=== PATIENT | male | born 1950 | race Caucasian/White ===

== ENCOUNTER 2017-08-07 16:06 | Observation (INO) | payer MEDICARE, BC ==
[~2017-08-07] VITALS: Ht 190.5 cm; Wt 113.5 kg
[~2017-08-07 16:06] MED LIST: ALLO300 PO; AMLO10 PO; ASPI81CH; ATEN25 PO; ATOR20 PO; CEPH500 PO; CRUTCH4 USE; ETOD400 PO; IBUP600 PO; NAPR550 PO; Norco 5-325 Ta1 EACH PO; OXYACE5T PO; POTA8 PO; Percocet 5-3251 EACH PO; RXNAPNA550 PO; SIMV10 PO
[2017-08-07] MEDS ORDERED: HYDCHL25 PO (16:30)
[2017-08-07 16:43] LABS: BASOPHILS ABSOLUTE AUTO 0.05 K/mm3 (0.00-0.23); BASOPHILS PERCENT AUTO 1 % (0-2); EOSINOPHILS ABSOLUTE AUTO 0.27 K/mm3 (0.00-0.68); EOSINOPHILS PERCENT AUTO 4 % (0-6); Hematocrit 45.3 % (37.0-53.0); Hemoglobin 14.9 g/dL (13.5-17.5); IMMATURE GRAN ABSOLUTE AUTO 0.02 K/mm3 (0.00-0.10); IMMATURE GRAN PERCENT AUTO 0 % (0-1); LYMPHOCYTES ABSOLUTE AUTO 1.62 K/mm3 (0.84-5.20); LYMPHOCYTES PERCENT AUTO 26 % (21-46); MONOCYTES ABSOLUTE AUTO 0.63 K/mm3 (0.16-1.47); MONOCYTES PERCENT AUTO 10 % (4-13); Mean Corpuscular HGB 30.8 pg (26.0-34.0); Mean Corpuscular HGB Conc 32.9 g/dL (31.5-36.5); Mean Corpuscular Volume 94 fL (80-100); Mean Platelet Volume 10.1 fL (9.1-12.4); NEUTROPHILS ABSOLUTE AUTO 3.76 K/mm3 (1.96-9.15); NEUTROPHILS PERCENT AUTO 59 % (41-73); Platelet Count 228 K/mm3 (150-400); RDW Coefficient Variation 12.8 % (11.7-14.2); RDW Standard Deviation 44.2 fL (35.1-46.3); Red Blood Cell Count 4.83 M/mm3 (4.30-5.90); White Blood Cell Count 6.35 K/mm3 (4.00-11.30)
[2017-08-07 17:04] LABS: Magnesium, Blood 1.9 mg/dL (1.6-2.4)
[2017-08-07 17:05] LABS: Alanine Aminotransfer (ALT/SGP 70 U/L (12-78); Albumin, Blood 3.5 g/dL (3.4-5.0); Albumin/Globulin Ratio 1.1 (0.8-1.8); Alk Phos 119 U/L (50-136); Anion Gap 8 mmol/L (6-16); Aspartate Aminotrans (AST/SGOT 60 U/L (12-37); Bilirubin, Total 0.2 mg/dL (0.1-1.0); Blood Urea Nitrogen 31 mg/dL (8-24); Bun/Creatinine Ratio 25.2 (12.0-20.0); CO2, Blood 24 mmol/L (21-32); Calcium, Blood 8.2 mg/dL (8.5-10.1); Chloride, Blood 113 mmol/L (98-108); Creatinine, Blood 1.23 mg/dL (0.60-1.20); Free Thyroxine 0.91 ng/dL (0.70-1.60); Globulin, Blood 3.3 g/dL (2.2-4.0); Glomerular Filtration Rate >60 (60-); Glucose, Blood 93 mg/dL (70-99); Potassium, Blood 4.3 mmol/L (3.5-5.5); Sodium, Blood 145 mmol/L (136-145); Total Protein, Blood 6.8 g/dL (6.4-8.2)
[2017-08-08 04:56] LABS: Anion Gap 10 mmol/L (6-16); Blood Urea Nitrogen 29 mg/dL (8-24); Bun/Creatinine Ratio 25.7 (12.0-20.0); CO2, Blood 24 mmol/L (21-32); Chloride, Blood 110 mmol/L (98-108); Creatinine, Blood 1.13 mg/dL (0.60-1.20); Glomerular Filtration Rate >60 (60-); Glucose, Blood 94 mg/dL (70-99); Sodium, Blood 144 mmol/L (136-145)
[2017-08-08] MEDS ORDERED: DILTIAZEM 24HR120 M1 PO (10:27)
[2017-08-08] MEDS ORDERED: XARELTO20 MG PO (10:28)
== END 2017-08-08 12:54 | disposition home or self-care (01) ==
LOC: ER 16:06 → PCU 18:25
PROVIDERS: Emergency Medicine; Hospitalist
DX: I48.92 Unspecified atrial flutter (principal); N17.9 Acute kidney failure, unspecified; I10 Essential (primary) hypertension; F10.20 Alcohol dependence, uncomplicated; E66.01 Morbid (severe) obesity due to excess calories; E78.5 Hyperlipidemia, unspecified; M10.9 Gout, unspecified; M19.90 Unspecified osteoarthritis, unspecified site; Z68.31 Body mass index [BMI] 31.0-31.9, adult; Z87.891 Personal history of nicotine dependence; Z79.82 Long term (current) use of aspirin; Z79.899 Other long term (current) drug therapy
CPT/HCPCS: 36415; 71046; 80048; 80053; 83735; 83880; 84439; 84443; 85025; 93005; 93010; 93306; 99285; G0378

== ENCOUNTER → 2019-08-19 | Outpatient (CLI) | payer MEDICARE, BC ==
[~2019-08-19] MED LIST changes: +DILTIAZEM 24HR120 M1 PO; +HYDCHL25 PO; +XARELTO20 MG PO
[2019-08-19 19:39] LABS: Anion Gap 5 mmol/L (6-16); Blood Urea Nitrogen 27 mg/dL (8-24); Bun/Creatinine Ratio 26.2 (12.0-20.0); CO2, Blood 28 mmol/L (21-32); Calcium, Blood 8.9 mg/dL (8.5-10.1); Chloride, Blood 105 mmol/L (98-108); Creatinine, Blood 1.03 mg/dL (0.60-1.20); Glomerular Filtration Rate >60 (60-); Glucose, Blood 122 mg/dL (70-99); Potassium, Blood 4.5 mmol/L (3.5-5.5); Sodium, Blood 138 mmol/L (136-145); Uric Acid, Blood 8.4 mg/dL (3.5-7.2)
== END ==
LOC: LAB SHORT 15:40 → LAB 15:40
PROVIDERS: Family Medicine
DX: M10.9 Gout, unspecified (principal)
CPT/HCPCS: 80048; 84550

== ENCOUNTER → 2020-01-30 | Outpatient (CLI) | payer OTHER, MEDICARE, BC | END | disposition home or self-care (01) | LOC: LAB UCHC 15:28 → LAB SHORT 15:28 | DX: R30.9 Painful micturition, unspecified (principal) | CPT/HCPCS: 87086 ==

== ENCOUNTER 2020-03-26 17:56 | Emergency (ER) | payer OTHER, MEDICARE, BC ==
[~2020-03-26] VITALS: Ht 190.5 cm; Wt 117.9 kg
[~2020-03-26 17:56] MED LIST changes: +ALLO100 PO; +FUROSEMIDE40 MG PO; +Isosorbide Mono30 MG PO; +METO25ER PO; +POTA10T PO
[2020-03-26 18:31] LABS: BASOPHILS ABSOLUTE AUTO 0.05 K/mm3 (0.00-0.23); BASOPHILS PERCENT AUTO 1 % (0-2); EOSINOPHILS ABSOLUTE AUTO 0.23 K/mm3 (0.00-0.68); EOSINOPHILS PERCENT AUTO 3 % (0-6); Hemoglobin 14.2 g/dL (13.5-17.5); IMMATURE GRAN ABSOLUTE AUTO 0.05 K/mm3 (0.00-0.10); IMMATURE GRAN PERCENT AUTO 1 % (0-1); LYMPHOCYTES ABSOLUTE AUTO 1.37 K/mm3 (0.84-5.20); LYMPHOCYTES PERCENT AUTO 18 % (21-46); MONOCYTES ABSOLUTE AUTO 0.74 K/mm3 (0.16-1.47); MONOCYTES PERCENT AUTO 10 % (4-13); Mean Corpuscular HGB 31.9 pg (26.0-34.0); Mean Corpuscular Volume 97 fL (80-100); Mean Platelet Volume 10.4 fL (9.1-12.4); NEUTROPHILS ABSOLUTE AUTO 5.34 K/mm3 (1.96-9.15); NEUTROPHILS PERCENT AUTO 69 % (41-73); Platelet Count 167 K/mm3 (150-400); RDW Coefficient Variation 13.9 % (11.7-14.2); RDW Standard Deviation 49.1 fL (35.1-46.3); Red Blood Cell Count 4.45 M/mm3 (4.30-5.90); White Blood Cell Count 7.78 K/mm3 (4.00-11.30)
[2020-03-26 18:55] LABS: Anion Gap 5 mmol/L (6-16); Blood Urea Nitrogen 21 mg/dL (8-24); Bun/Creatinine Ratio 24.9 (12.0-20.0); CO2, Blood 26 mmol/L (21-32); Calcium, Blood 8.5 mg/dL (8.5-10.1); Chloride, Blood 113 mmol/L (98-108); Creatinine, Blood 0.84 mg/dL (0.60-1.20); Glomerular Filtration Rate >60 (60-); Glucose, Blood 82 mg/dL (70-99); Potassium, Blood 4.8 mmol/L (3.5-5.5); Sodium, Blood 144 mmol/L (136-145); Troponin I <0.015 ng/mL (0.000-0.040)
[2020-03-26] MEDS ORDERED: KEFLEX500 MG PO (20:24)
[2020-03-26] MEDS ORDERED: Percocet 5-3251 EACH PO (20:24)
[2020-03-26] MEDS ORDERED: ONDA4ODT MM (20:24)
[2020-03-26] MEDS ORDERED: Toprol Xl50 MG PO (20:55)
== END 2020-03-26 21:10 | disposition home or self-care (01) ==
LOC: ER 17:56
PROVIDERS: Physician Assistant
DX: I10 Essential (primary) hypertension (principal); I82.409 Acute embolism and thrombosis of unspecified deep veins of unspecified lower extremity; I48.91 Unspecified atrial fibrillation; I48.92 Unspecified atrial flutter; E78.5 Hyperlipidemia, unspecified; Z87.891 Personal history of nicotine dependence; Z79.01 Long term (current) use of anticoagulants; Z79.899 Other long term (current) drug therapy
CPT/HCPCS: 80048; 84484; 85025; 93005; 93010; 99283-25

== ENCOUNTER 2020-05-21 17:05 | Emergency (ER) | payer OTHER, MEDICARE, BC ==
[~2020-05-21] VITALS: Ht 190.5 cm; Wt 116.7 kg
[~2020-05-21 17:05] MED LIST changes: +KEFLEX500 MG PO; +ONDA4ODT MM; +Toprol Xl50 MG PO
[2020-05-21 17:58] LABS: BASOPHILS ABSOLUTE AUTO 0.08 K/mm3 (0.00-0.23); BASOPHILS PERCENT AUTO 1 % (0-2); EOSINOPHILS ABSOLUTE AUTO 0.35 K/mm3 (0.00-0.68); EOSINOPHILS PERCENT AUTO 4 % (0-6); Hematocrit 47.6 % (37.0-53.0); Hemoglobin 15.2 g/dL (13.5-17.5); IMMATURE GRAN ABSOLUTE AUTO 0.02 K/mm3 (0.00-0.10); IMMATURE GRAN PERCENT AUTO 0 % (0-1); LYMPHOCYTES ABSOLUTE AUTO 1.73 K/mm3 (0.84-5.20); LYMPHOCYTES PERCENT AUTO 20 % (21-46); MONOCYTES ABSOLUTE AUTO 0.99 K/mm3 (0.16-1.47); MONOCYTES PERCENT AUTO 11 % (4-13); Mean Corpuscular HGB 30.2 pg (26.0-34.0); Mean Corpuscular HGB Conc 31.9 g/dL (31.5-36.5); Mean Corpuscular Volume 95 fL (80-100); Mean Platelet Volume 10.3 fL (9.1-12.4); NEUTROPHILS ABSOLUTE AUTO 5.48 K/mm3 (1.96-9.15); NEUTROPHILS PERCENT AUTO 64 % (41-73); Platelet Count 252 K/mm3 (150-400); RDW Coefficient Variation 13.4 % (11.7-14.2); RDW Standard Deviation 46.6 fL (35.1-46.3); Red Blood Cell Count 5.03 M/mm3 (4.30-5.90); White Blood Cell Count 8.65 K/mm3 (4.00-11.30)
[2020-05-21 18:18] LABS: Alanine Aminotransfer (ALT/SGP 31 U/L (12-78); Albumin, Blood 3.6 g/dL (3.4-5.0); Albumin/Globulin Ratio 1.1 (0.8-1.8); Alk Phos 97 U/L (50-136); Anion Gap 8 mmol/L (6-16); Aspartate Aminotrans (AST/SGOT 33 U/L (12-37); Bilirubin, Total 0.5 mg/dL (0.1-1.0); Blood Urea Nitrogen 20 mg/dL (8-24); Bun/Creatinine Ratio 20.8 (12.0-20.0); CO2, Blood 24 mmol/L (21-32); Calcium, Blood 8.8 mg/dL (8.5-10.1); Chloride, Blood 106 mmol/L (98-108); Creatinine, Blood 0.96 mg/dL (0.60-1.20); Globulin, Blood 3.3 g/dL (2.2-4.0); Glomerular Filtration Rate >60 (60-); Glucose, Blood 91 mg/dL (70-99); Potassium, Blood 4.4 mmol/L (3.5-5.5); Sodium, Blood 138 mmol/L (136-145); Total Protein, Blood 6.9 g/dL (6.4-8.2)
[2020-05-21 18:57] LABS: International Normalized Ratio 1.05; Prothrombin Time Results 11.2 Sec (9.7-11.5)
[2020-05-21] MEDS ORDERED: SULTRIDS PO (19:40)
[2020-05-21] MEDS ORDERED: CEPH500 PO (19:40)
== END 2020-05-21 23:21 | disposition home or self-care (01) ==
LOC: ER 17:05
PROVIDERS: Emergency Medicine; Physician Assistant
DX: I82.532 Chronic embolism and thrombosis of left popliteal vein (principal); L03.116 Cellulitis of left lower limb; I10 Essential (primary) hypertension; E78.5 Hyperlipidemia, unspecified; Z79.01 Long term (current) use of anticoagulants; Z87.891 Personal history of nicotine dependence; Z79.899 Other long term (current) drug therapy
CPT/HCPCS: 36415; 73630; 80053; 85025; 85610; 85730; 93971; 96365; 96366; 96367; 99284-25; J0696; J3370; J7050

== ENCOUNTER 2020-05-23 00:27 | Day surgery (SDC) | payer OTHER, MEDICARE, BC ==
[~2020-05-23 00:27] MED LIST changes: +SULTRIDS PO
--- NOTE | 2020-05-23 09:42 | NUR ---
PT STATES HE IS GOING TO ER HE CANNOT USE HIS R ARM. STATES IT IS FROM THE ER STAFF LEAVING THE BP CUFF ON R ARM.
[2020-05-23] MEDS ORDERED: Percocet 5-3251 EACH PO (11:12)
== END 2020-05-23 18:02 | disposition home or self-care (01) ==
LOC: ATC 00:27
DX: L03.116 Cellulitis of left lower limb (principal); I82.532 Chronic embolism and thrombosis of left popliteal vein; I48.92 Unspecified atrial flutter; I10 Essential (primary) hypertension; M10.9 Gout, unspecified; E78.5 Hyperlipidemia, unspecified; M19.90 Unspecified osteoarthritis, unspecified site; Z96.653 Presence of artificial knee joint, bilateral; Z87.891 Personal history of nicotine dependence; Z79.2 Long term (current) use of antibiotics; Z79.899 Other long term (current) drug therapy; Z79.01 Long term (current) use of anticoagulants; Z88.8 Allergy status to other drugs, medicaments and biological substances
CPT/HCPCS: 96365; 96366; 96367; J0696; J3370; J7050

== ENCOUNTER 2020-05-23 10:13 | Emergency (ER) | payer OTHER, MEDICARE, BC ==
[~2020-05-23] VITALS: Ht 190.5 cm; Wt 120.2 kg
[2020-05-23] MEDS ORDERED: Percocet 5-3251 EACH PO (11:12)
== END 2020-05-23 11:39 | disposition home or self-care (01) ==
LOC: ER 10:13
DX: M77.8 Other enthesopathies, not elsewhere classified (principal); I10 Essential (primary) hypertension; I48.92 Unspecified atrial flutter; E78.5 Hyperlipidemia, unspecified; Z79.01 Long term (current) use of anticoagulants; Z79.899 Other long term (current) drug therapy
CPT/HCPCS: 73080; 99283-25

== ENCOUNTER 2020-05-25 01:10 | Day surgery (SDC) | payer OTHER, MEDICARE, BC | END 2020-05-25 23:25 | disposition home or self-care (01) | LOC: WOUND 01:10 | DX: L97.529 Non-pressure chronic ulcer of other part of left foot with unspecified severity (principal); G47.30 Sleep apnea, unspecified; M10.9 Gout, unspecified; M06.9 Rheumatoid arthritis, unspecified; M19.90 Unspecified osteoarthritis, unspecified site; I49.9 Cardiac arrhythmia, unspecified; I82.432 Acute embolism and thrombosis of left popliteal vein; I87.2 Venous insufficiency (chronic) (peripheral); I10 Essential (primary) hypertension; I73.9 Peripheral vascular disease, unspecified; Z87.891 Personal history of nicotine dependence | CPT/HCPCS: G0463 ==

== ENCOUNTER 2020-05-28 08:27 | Emergency (ER) | payer MEDICARE, OTHER, BC ==
[~2020-05-28] VITALS: Ht 190.5 cm; Wt 120.2 kg
[2020-05-28 09:06] LABS: BASOPHILS ABSOLUTE AUTO 0.06 K/mm3 (0.00-0.23); BASOPHILS PERCENT AUTO 1 % (0-2); EOSINOPHILS ABSOLUTE AUTO 0.17 K/mm3 (0.00-0.68); EOSINOPHILS PERCENT AUTO 2 % (0-6); Hematocrit 42.4 % (37.0-53.0); Hemoglobin 14.2 g/dL (13.5-17.5); IMMATURE GRAN ABSOLUTE AUTO 0.03 K/mm3 (0.00-0.10); IMMATURE GRAN PERCENT AUTO 0 % (0-1); LYMPHOCYTES ABSOLUTE AUTO 1.04 K/mm3 (0.84-5.20); LYMPHOCYTES PERCENT AUTO 11 % (21-46); MONOCYTES ABSOLUTE AUTO 1.17 K/mm3 (0.16-1.47); MONOCYTES PERCENT AUTO 12 % (4-13); Mean Corpuscular HGB 30.6 pg (26.0-34.0); Mean Corpuscular HGB Conc 33.5 g/dL (31.5-36.5); Mean Corpuscular Volume 91 fL (80-100); Mean Platelet Volume 10.2 fL (9.1-12.4); NEUTROPHILS ABSOLUTE AUTO 7.39 K/mm3 (1.96-9.15); NEUTROPHILS PERCENT AUTO 75 % (41-73); Platelet Count 264 K/mm3 (150-400); RDW Standard Deviation 44.1 fL (35.1-46.3); Red Blood Cell Count 4.64 M/mm3 (4.30-5.90); White Blood Cell Count 9.86 K/mm3 (4.00-11.30)
[2020-05-28 09:21] LABS: Alanine Aminotransfer (ALT/SGP 31 U/L (12-78); Albumin, Blood 3.1 g/dL (3.4-5.0); Albumin/Globulin Ratio 0.7 (0.8-1.8); Alk Phos 173 U/L (50-136); Anion Gap 8 mmol/L (6-16); Aspartate Aminotrans (AST/SGOT 34 U/L (12-37); Bilirubin, Total 0.7 mg/dL (0.1-1.0); Blood Urea Nitrogen 27 mg/dL (8-24); Bun/Creatinine Ratio 22.7 (12.0-20.0); CO2, Blood 26 mmol/L (21-32); Calcium, Blood 8.9 mg/dL (8.5-10.1); Chloride, Blood 99 mmol/L (98-108); Creatinine, Blood 1.19 mg/dL (0.60-1.20); Globulin, Blood 4.2 g/dL (2.2-4.0); Glomerular Filtration Rate >60 (60-); Glucose, Blood 107 mg/dL (70-99); Potassium, Blood 4.7 mmol/L (3.5-5.5); Sodium, Blood 133 mmol/L (136-145); Total Protein, Blood 7.3 g/dL (6.4-8.2); Troponin I <0.015 ng/mL (0.000-0.040)
[2020-05-28 09:22] LABS: International Normalized Ratio 1.06; Prothrombin Time Results 11.3 Sec (9.7-11.5)
[2020-05-28] MEDS ORDERED: Prednisone20 MG PO (11:44)
[2020-05-28] MEDS ORDERED: COLCHICINE0.6 MG PO (11:44)
[2020-05-28] MEDS ORDERED: Percocet 5-3251 EACH PO (11:55)
== END 2020-05-28 12:16 | disposition home or self-care (01) ==
LOC: ER 08:27
PROVIDERS: Physician Assistant
DX: M10.9 Gout, unspecified (principal); I10 Essential (primary) hypertension; I48.91 Unspecified atrial fibrillation; E78.5 Hyperlipidemia, unspecified; Z79.01 Long term (current) use of anticoagulants; Z79.899 Other long term (current) drug therapy
CPT/HCPCS: 36415; 71045; 71260; 80053; 84484; 85025; 85610; 93005; 93010; 96374; 99285-25; A9270; J3010; Q9967

== ENCOUNTER 2020-06-01 02:08 | Day surgery (SDC) | payer OTHER, MEDICARE, BC ==
[~2020-06-01 02:08] MED LIST changes: +COLCHICINE0.6 MG PO; +Prednisone20 MG PO
== END 2020-06-01 23:57 | disposition home or self-care (01) ==
LOC: WOUND 02:08
DX: I82.432 Acute embolism and thrombosis of left popliteal vein (principal); L97.529 Non-pressure chronic ulcer of other part of left foot with unspecified severity; I87.2 Venous insufficiency (chronic) (peripheral)
CPT/HCPCS: G0463

== ENCOUNTER 2020-06-30 17:14 | Emergency (ER) | payer OTHER, MEDICARE, BC ==
[~2020-06-30] VITALS: Ht 190.5 cm; Wt 115.7 kg
[2020-06-30 22:08] LABS: Glucose, Blood 92 mg/dL (70-99)
[2020-06-30] MEDS ORDERED: CEPH500 PO (22:18)
== END 2020-06-30 22:39 | disposition home or self-care (01) ==
LOC: ER 17:14
PROVIDERS: Physician Assistant
DX: M70.31 Other bursitis of elbow, right elbow (principal); L03.116 Cellulitis of left lower limb; Z79.01 Long term (current) use of anticoagulants; Z79.899 Other long term (current) drug therapy
CPT/HCPCS: 36415; 73080; 82947; 96372; 99283-25; J0696

== ENCOUNTER 2020-07-02 14:17 | Emergency (ER) | payer OTHER, MEDICARE, BC ==
[~2020-07-02] VITALS: Ht 190.5 cm; Wt 115.7 kg
[2020-07-02] MEDS ORDERED: NYAMYC15 G1 TOP (14:38)
[2020-07-02] MEDS ORDERED: Mobic15 MG PO (14:40)
== END 2020-07-02 14:46 | disposition home or self-care (01) ==
LOC: ER 14:17
DX: L03.116 Cellulitis of left lower limb (principal); L03.113 Cellulitis of right upper limb; B35.3 Tinea pedis; I10 Essential (primary) hypertension; E78.5 Hyperlipidemia, unspecified; Z79.01 Long term (current) use of anticoagulants; Z79.52 Long term (current) use of systemic steroids; Z79.899 Other long term (current) drug therapy
CPT/HCPCS: 99282

== ENCOUNTER 2021-08-14 15:00 | Day surgery (SDC) | payer MEDICARE, BC ==
[~2021-08-14 15:00] MED LIST changes: +Mobic15 MG PO; +NYAMYC15 G1 TOP
== END 2021-08-14 23:10 | disposition home or self-care (01) ==
LOC: RAD 15:00
DX: M51.36 Other intervertebral disc degeneration, lumbar region (principal); M47.816 Spondylosis without myelopathy or radiculopathy, lumbar region; M46.1 Sacroiliitis, not elsewhere classified
CPT/HCPCS: 72100

== ENCOUNTER 2022-02-17 07:59 | Day surgery (SDC) | payer MEDICARE, BC ==
[~2022-02-17] VITALS: Ht 190.5 cm; Wt 122.2 kg
[~2022-02-17 07:59] MED LIST changes: +ELIQUIS5 M2 PO; +GABA300 PO; +LOSA50 PO; +MELO7.5 PO; +TRAM50 PO; +VITAMIN D310 MC4 PO; +Voltaren100 GM TOP
--- NOTE | 2022-02-17 10:40 | NUR ---
TO BATHROOM BEFORE GOING TO OR. PHONE AND GLASSES IN PLASTIC BAG WITH PATIENT LABEL ON IT DELIVERED TO PACU
--- NOTE | 2022-02-17 11:22 | NUR ---
02/17/22 Becky Cavazos NOTED SMALL SCAB ON OUTER LEFT THIGH PRIOR TO TOURNIQUET APPLICATION.
--- NOTE | 2022-02-17 17:30 | NUR ---
SHIFT SUMMARY POD0 L TKA, A/OX4, VSS, TOLERATING PO, AMBULATING WITH 1 SBA, UP TO CHAIR APROXIMATELY 2 HOURS AFTER ARRIVING TO THE FLOOR, PAIN WELL MANAGED. DISCUSSED PLAN FOR TONIGHT AND TOMORROW WITH PT WHO DID NOT HAVE ANY QUESTIONS. NO POST OF VOID YET. WILL CTM AND REPORT TO ONCOMING RN.
--- NOTE | 2022-02-17 17:50 | NUR ---
ASSUMED CARE OF PT AT APROX 1750.
--- NOTE | 2022-02-18 03:48 | NUR ---
SHIFT SUMMARY POD1 L TKA AQUACELS X2 WITH SLIGHT SHADOWING. REPORTS MINIMAL PAIN WITH MOVEMENT. MEDICATED PER EMAR RESPONDS WELL. WALKS W/ FWW SBA, GB. VOIDS EASILY. DENIES N/T AND N/V. AOX4 CALLS APPROPRIATELY.
[2022-02-18 05:06] LABS: BASOPHILS ABSOLUTE AUTO 0.05 K/mm3 (0.00-0.23); BASOPHILS PERCENT AUTO 0 % (0-2); EOSINOPHILS ABSOLUTE AUTO 0.05 K/mm3 (0.00-0.68); EOSINOPHILS PERCENT AUTO 0 % (0-6); Hematocrit 39.4 % (37.0-53.0); Hemoglobin 12.8 g/dL (13.5-17.5); IMMATURE GRAN ABSOLUTE AUTO 0.23 K/mm3 (0.00-0.10); IMMATURE GRAN PERCENT AUTO 1 % (0-1); LYMPHOCYTES ABSOLUTE AUTO 1.58 K/mm3 (0.84-5.20); LYMPHOCYTES PERCENT AUTO 10 % (21-46); MONOCYTES PERCENT AUTO 8 % (4-13); Mean Corpuscular HGB 32.9 pg (26.0-34.0); Mean Corpuscular HGB Conc 32.5 g/dL (31.5-36.5); Mean Corpuscular Volume 101 fL (80-100); Mean Platelet Volume 9.9 fL (9.1-12.4); NEUTROPHILS ABSOLUTE AUTO 12.94 K/mm3 (1.96-9.15); NEUTROPHILS PERCENT AUTO 80 % (41-73); Platelet Count 200 K/mm3 (150-400); RDW Coefficient Variation 13.9 % (11.7-14.2); RDW Standard Deviation 51.7 fL (35.1-46.3); Red Blood Cell Count 3.89 M/mm3 (4.30-5.90); White Blood Cell Count 16.15 K/mm3 (4.00-11.30)
[2022-02-18 05:18] LABS: Bun/Creatinine Ratio 25.2 (12.0-20.0); Calcium, Blood 7.7 mg/dL (8.5-10.1); Creatinine, Blood 1.03 mg/dL (0.60-1.20); Magnesium, Blood 2.2 mg/dL (1.6-2.4); Potassium, Blood 4.8 mmol/L (3.5-5.5)
[2022-02-18] MEDS ORDERED: OXAYDO5 M2 PO (07:18)
--- NOTE | 2022-02-18 12:09 | NUR ---
DISCHARGE SUMMMARY POD1 L TKA, A/OX4, VSS, TOLERATING PO, PAIN WELL MANAGED, AMBULATES c MINIMAL SBA, VOIDING WELL. PT CLEARED PHYSICAL THERAPY AND WAS REPORTING PAIN AT 2/10 AT THE HIGHEST THIS SHIFT. DISCUSSED DISCHARGE INFORMATION WITH PT AND HIS FRIEND WHO IS ASSISTING HIM INLCUDING HOME CARE, DRESSING CHANGES, SHOWERING, MEDICATIONS, PAIN MANAGEMENT, FOLLOW UP APPOINTMENTS, AND CONTACT INFORMATION SHOULD QUESTIONS COME UP AFTER DISCHARGE. PT HAD NO QUESTIONS AT THIS TIME. AQUACELL DRESSINGS C/D/I AND HE WAS PROVIDED WITH ADDITIONAL DRESSINGS TO CHANGE IN 5 DAYS. PULSES PRESENT ALL EXTREMETIES WITH GOOD CAP REFILL, PT ABLE TO WIGGLE TOES AND DENIES SOB, N/T, AND NO CP. IV ACCESS DEVICE REMOVED AND NO OTHERS IN PLACE AT TIME OF DISCHARGE. PT ESCORTED OUT VIA WC TO PRIVATE AUTO TO GO HOME WITH ALL PERSONAL POSSESSIONS AND POLAR PACK.
== END 2022-02-18 11:30 | disposition home or self-care (01) ==
LOC: ORSCMMR 07:59 → ORD 10:00 → SURS 14:15 → ORSCMMR 17:07
PROVIDERS: Orthopaedic Surgery
PROC: 0SRD0JA Replacement of Left Knee Joint with Synthetic Substitute, Uncemented, Open Approach (ICD-10-PCS; principal; 2022-02-17 10:00)
PROC: 8E0Y0CZ Robotic Assisted Procedure of Lower Extremity, Open Approach (ICD-10-PCS; principal; 2022-02-17 10:00)
DX: M17.12 Unilateral primary osteoarthritis, left knee (principal); E11.9 Type 2 diabetes mellitus without complications; E78.5 Hyperlipidemia, unspecified; I10 Essential (primary) hypertension; G47.33 Obstructive sleep apnea (adult) (pediatric); I48.92 Unspecified atrial flutter; Z79.01 Long term (current) use of anticoagulants; Z79.899 Other long term (current) drug therapy; Z87.891 Personal history of nicotine dependence
CPT/HCPCS: 27447; 20985; S2900; 36415; 73560-LT; 80048; 83735; 85025; 97116; 97161; A9270; C1776; J0171; J0690; J0735; J1100; J1885; J2250; J2370; J2405; J2704; J2795; J3010; J7120

== ENCOUNTER 2022-02-22 16:47 | Emergency (ER) | payer MEDICARE, BC ==
[~2022-02-22] VITALS: Ht 190.5 cm; Wt 120.2 kg
[~2022-02-22 16:47] MED LIST changes: +OXAYDO5 M2 PO
== END 2022-02-22 21:11 | disposition home or self-care (01) ==
LOC: ER 16:47
DX: G89.18 Other acute postprocedural pain (principal); M25.562 Pain in left knee; R58 Hemorrhage, not elsewhere classified; I10 Essential (primary) hypertension; I48.92 Unspecified atrial flutter; Z79.899 Other long term (current) drug therapy; Z79.01 Long term (current) use of anticoagulants
CPT/HCPCS: 99283

== ENCOUNTER 2022-04-21 08:26 | Day surgery (SDC) | payer MEDICARE, BC ==
[~2022-04-21] VITALS: Ht 190.5 cm; Wt 118.2 kg
[2022-04-21] MEDS ORDERED: PRED20 PO (09:12)
--- NOTE | 2022-04-21 09:57 | NUR ---
History, Chart, Medications and Allergies reviewed before start of procedure. Lungs clear T/O to Auscultation. Patient confirms NPO status and agrees with scheduled surgery. Pre-Op teaching done. Pt verbalizes understanding. Patient reports completing Chlorhexadine shower X2 prior to admission to hospital.
--- NOTE | 2022-04-21 09:59 | NUR ---
PT AMB TO BATHROOM TO VOID PRIOR TO PROCEDURE
--- NOTE | 2022-04-21 19:00 | NUR ---
SHIFT SUMMARY PT HAS DONE WELL POST OP. WORKED w/ THERAPY. EATING, DRINKING, & VOIDING. VOID WAS DURING THERAPY SO UNMEASURED. PT REPORTS NOT HAVING RUNNING WATER AT HOME & HAS CONCERNS FOR DC.
--- NOTE | 2022-04-22 04:20 | NUR ---
SHIFT SUMMARY A/O X4- POD1 R TOTAL KNEE, AQUACEL DRESSINGS C/D/I. AMBULATING WELL W/ SBA, FWW, AND GB. TOLERATING PO INTAKE, VOIDING WELL. NO REPORT OF PAIN THROUGHOUT THE SHIFT. PLEASANT AND COOPERATIVE W/ CARE. WILL CONTINUE TO MONITOR AND REPORT TO ONCOMING RN.
[2022-04-22 05:03] LABS: BASOPHILS ABSOLUTE AUTO 0.02 K/mm3 (0.00-0.23); BASOPHILS PERCENT AUTO 0 % (0-2); EOSINOPHILS PERCENT AUTO 0 % (0-6); Hematocrit 38.7 % (37.0-53.0); Hemoglobin 12.7 g/dL (13.5-17.5); IMMATURE GRAN ABSOLUTE AUTO 0.12 K/mm3 (0.00-0.10); IMMATURE GRAN PERCENT AUTO 1 % (0-1); LYMPHOCYTES ABSOLUTE AUTO 0.82 K/mm3 (0.84-5.20); LYMPHOCYTES PERCENT AUTO 5 % (21-46); MONOCYTES ABSOLUTE AUTO 0.98 K/mm3 (0.16-1.47); MONOCYTES PERCENT AUTO 6 % (4-13); Mean Corpuscular HGB 31.8 pg (26.0-34.0); Mean Corpuscular HGB Conc 32.8 g/dL (31.5-36.5); Mean Corpuscular Volume 97 fL (80-100); Mean Platelet Volume 10.2 fL (9.1-12.4); NEUTROPHILS ABSOLUTE AUTO 14.13 K/mm3 (1.96-9.15); NEUTROPHILS PERCENT AUTO 88 % (41-73); Platelet Count 200 K/mm3 (150-400); RDW Coefficient Variation 14.3 % (11.7-14.2); RDW Standard Deviation 50.9 fL (35.1-46.3); Red Blood Cell Count 3.99 M/mm3 (4.30-5.90); White Blood Cell Count 16.07 K/mm3 (4.00-11.30)
[2022-04-22 05:20] LABS: Bun/Creatinine Ratio 26.4 (12.0-20.0); Calcium, Blood 8.2 mg/dL (8.5-10.1); Creatinine, Blood 1.1 mg/dL (0.60-1.20); Magnesium, Blood 2.3 mg/dL (1.6-2.4); Potassium, Blood 4.9 mmol/L (3.5-5.5)
[2022-04-22] MEDS ORDERED: OXYC5 PO (12:41)
[2022-04-22] MEDS ORDERED: ACET500 PO (12:42)
--- NOTE | 2022-04-22 13:45 | NUR ---
DISCHARGE PT HAS CLEARED THERAPY. PAIN WELL CONTROLLED. EATING, DRINKING, & VOIDING WELL. ESTEFANIA & POLAR PACK SENT w/ PT. SCRIPT SENT ELECTRONICALLY PER DR CLINTON. ESCORTED OUT VIA W/C. DESPITE NOT HAVING RUNNING WATER, PT HAS ACCESS TO WATER.
== END 2022-04-22 13:45 | disposition home or self-care (01) ==
LOC: ORSCMMR 08:26 → SURS 13:18 → ORSCMMR 14:00 → ORD 14:00 → ORSCMMR 04-22 13:45 → ORD 06-02 10:45
PROVIDERS: Orthopaedic Surgery
PROC: 8E0Y0CZ Robotic Assisted Procedure of Lower Extremity, Open Approach (ICD-10-PCS; principal; 2022-04-21 10:45)
PROC: 0SRC0JA Replacement of Right Knee Joint with Synthetic Substitute, Uncemented, Open Approach (ICD-10-PCS; principal; 2022-04-21 10:45)
DX: M17.11 Unilateral primary osteoarthritis, right knee (principal); I10 Essential (primary) hypertension; I48.91 Unspecified atrial fibrillation; Z79.01 Long term (current) use of anticoagulants; G47.33 Obstructive sleep apnea (adult) (pediatric); Z87.891 Personal history of nicotine dependence; I25.2 Old myocardial infarction; Z79.899 Other long term (current) drug therapy
CPT/HCPCS: 27447; 20985; S2900; 36415; 73560-RT; 80048; 83735; 85025; 97110; 97116; 97162; A9270; C1776; J0171; J0690; J0735; J1100; J1885; J2250; J2370; J2405; J2704; J2795; J3010; J7120; J7512

== ENCOUNTER 2022-10-11 13:56 | Emergency (ER) | payer MEDICARE, BC ==
[~2022-10-11] VITALS: Ht 190.5 cm; Wt 122.5 kg
[~2022-10-11 13:56] MED LIST changes: +ACET500 PO; +CYCL10 PO; +LIDO700A20 TOP; +OXYC5 PO; +PRED20 PO
[2022-10-11 15:04] LABS: BASOPHILS ABSOLUTE AUTO 0.05 K/mm3 (0.00-0.23); BASOPHILS PERCENT AUTO 0 % (0-2); EOSINOPHILS ABSOLUTE AUTO 0.02 K/mm3 (0.00-0.68); EOSINOPHILS PERCENT AUTO 0 % (0-6); Hematocrit 41.4 % (37.0-53.0); Hemoglobin 13.3 g/dL (13.5-17.5); IMMATURE GRAN ABSOLUTE AUTO 0.17 K/mm3 (0.00-0.10); IMMATURE GRAN PERCENT AUTO 2 % (0-1); LYMPHOCYTES ABSOLUTE AUTO 0.57 K/mm3 (0.84-5.20); LYMPHOCYTES PERCENT AUTO 5 % (21-46); MONOCYTES PERCENT AUTO 3 % (4-13); Mean Corpuscular HGB 30.9 pg (26.0-34.0); Mean Corpuscular HGB Conc 32.1 g/dL (31.5-36.5); Mean Corpuscular Volume 96 fL (80-100); Mean Platelet Volume 9.6 fL (9.1-12.4); NEUTROPHILS ABSOLUTE AUTO 10.25 K/mm3 (1.96-9.15); NEUTROPHILS PERCENT AUTO 90 % (41-73); Platelet Count 208 K/mm3 (150-400); RDW Coefficient Variation 15.9 % (11.7-14.2); RDW Standard Deviation 56.5 fL (35.1-46.3); Red Blood Cell Count 4.31 M/mm3 (4.30-5.90); White Blood Cell Count 11.36 K/mm3 (4.00-11.30)
[2022-10-11 15:25] LABS: Albumin, Blood 3.3 g/dL (3.4-5.0); Albumin/Globulin Ratio 1.2 (0.8-1.8); Bilirubin, Total 0.3 mg/dL (0.1-1.0); Bun/Creatinine Ratio 30.4 (12.0-20.0); Calcium, Blood 8.4 mg/dL (8.5-10.1); Creatinine, Blood 0.96 mg/dL (0.60-1.20); Globulin, Blood 2.8 g/dL (2.2-4.0); Potassium, Blood 4.7 mmol/L (3.5-5.5); Total Protein, Blood 6.1 g/dL (6.4-8.2)
[2022-10-11 16:30] VITALS: BP 149/91
== END 2022-10-11 16:43 | disposition home or self-care (01) ==
LOC: ER 13:56
PROVIDERS: Physician Assistant
DX: I10 Essential (primary) hypertension (principal); R60.0 Localized edema; I48.92 Unspecified atrial flutter; Z91.030 Bee allergy status; Z79.01 Long term (current) use of anticoagulants; Z79.52 Long term (current) use of systemic steroids; Z79.899 Other long term (current) drug therapy
CPT/HCPCS: 80053; 83690; 83880; 84484; 85025; A9270

== ENCOUNTER → 2022-12-10 | Outpatient (CLI) | payer MEDICARE, BC | LOC: PLD 13:16 → LAB 13:16 → LAB SHORT 13:16 | DX: R23.4 Changes in skin texture (principal); L53.9 Erythematous condition, unspecified; R23.8 Other skin changes | CPT/HCPCS: 88312 ==

== ENCOUNTER → 2024-02-10 | Outpatient (CLI) | payer MEDICARE, BC ==
[~2024-02-10] MED LIST changes: +TERB250 PO
[2024-02-10 19:12] LABS: BASOPHILS ABSOLUTE AUTO 0.06 K/mm3 (0.00-0.23); BASOPHILS PERCENT AUTO 1 % (0-2); EOSINOPHILS ABSOLUTE AUTO 0.05 K/mm3 (0.00-0.68); EOSINOPHILS PERCENT AUTO 1 % (0-6); Hematocrit 44.1 % (37.0-53.0); Hemoglobin 14.3 g/dL (13.5-17.5); IMMATURE GRAN ABSOLUTE AUTO 0.12 K/mm3 (0.00-0.10); IMMATURE GRAN PERCENT AUTO 1 % (0-1); LYMPHOCYTES ABSOLUTE AUTO 1.39 K/mm3 (0.84-5.20); LYMPHOCYTES PERCENT AUTO 14 % (21-46); MONOCYTES ABSOLUTE AUTO 0.52 K/mm3 (0.16-1.47); MONOCYTES PERCENT AUTO 5 % (4-13); Mean Corpuscular HGB 32.3 pg (26.0-34.0); Mean Corpuscular HGB Conc 32.4 g/dL (31.5-36.5); Mean Corpuscular Volume 100 fL (80-100); NEUTROPHILS PERCENT AUTO 78 % (41-73); Platelet Count 217 K/mm3 (150-400); RDW Coefficient Variation 13.7 % (11.7-14.2); RDW Standard Deviation 50.4 fL (35.1-46.3); Red Blood Cell Count 4.43 M/mm3 (4.30-5.90); White Blood Cell Count 9.74 K/mm3 (4.00-11.30)
[2024-02-10 20:03] LABS: Alanine Aminotransfer (ALT/SGP 33 U/L (12-78); Albumin, Blood 3.8 g/dL (3.4-5.0); Albumin/Globulin Ratio 1.3 (0.8-1.8); Alk Phos 80 U/L (50-136); Anion Gap 11 mmol/L (3-11); Aspartate Aminotrans (AST/SGOT 25 U/L (12-37); Bilirubin, Total 0.5 mg/dL (0.1-1.0); Blood Urea Nitrogen 34 mg/dL (8-24); Bun/Creatinine Ratio 36.2 (12.0-20.0); CHOL/HDL RATIO 2.6; CO2, Blood 25 mmol/L (21-32); Calcium, Blood 8.9 mg/dL (8.5-10.1); Chloride, Blood 108 mmol/L (98-108); Cholesterol 204 mg/dL (50-200); Creatinine, Blood 0.94 mg/dL (0.60-1.20); Glomerular Filtration Rate 87 (60-); Glucose, Blood 146 mg/dL (70-99); HDL Cholesterol 80 mg/dL (>39); LDL/HDL RATIO 1.3; Low Density Lipoprotein Chol 107 mg/dL (0-110); Potassium, Blood 4.7 mmol/L (3.5-5.5); Sodium, Blood 139 mmol/L (136-145); Thyroid Stimulating Hormone 0.879 uIU/mL (0.360-4.800); Total Protein, Blood 6.8 g/dL (6.4-8.2); Triglycerides 83 mg/dL (30-160); Very Low Density Lipoprot Chol 16 mg/dL (6-32)
== END | disposition home or self-care (01) ==
LOC: LAB SHORT 17:35 → LAB 17:35
PROVIDERS: Family Medicine
DX: Z51.81 Encounter for therapeutic drug level monitoring (principal); Z79.899 Other long term (current) drug therapy
CPT/HCPCS: 80053; 80061; 82306; 83036; 84443; 85025

== ENCOUNTER → 2024-09-14 | Outpatient (CLI) | payer MEDICARE, BC ==
[2024-09-14 12:43] LABS: Alanine Aminotransfer (ALT/SGP 28 U/L (12-78); Albumin, Blood 3.7 g/dL (3.4-5.0); Albumin/Globulin Ratio 1.3 (0.8-1.8); Alk Phos 111 U/L (50-136); Anion Gap 8 mmol/L (3-11); Aspartate Aminotrans (AST/SGOT 25 U/L (12-37); Bilirubin, Total 0.4 mg/dL (0.1-1.0); Blood Urea Nitrogen 25 mg/dL (8-24); Bun/Creatinine Ratio 26.9 (12.0-20.0); CHOL/HDL RATIO 4.3; CO2, Blood 27 mmol/L (21-32); Calcium, Blood 8.8 mg/dL (8.5-10.1); Chloride, Blood 109 mmol/L (98-108); Cholesterol 177 mg/dL (50-200); Creatinine, Blood 0.93 mg/dL (0.60-1.20); Globulin, Blood 2.9 g/dL (2.2-4.0); Glomerular Filtration Rate 87 (60-); Glucose, Blood 123 mg/dL (70-99); HDL Cholesterol 41 mg/dL (>39); LDL/HDL RATIO 2.5; Low Density Lipoprotein Chol 102 mg/dL (0-110); Magnesium, Blood 1.9 mg/dL (1.6-2.4); Potassium, Blood 4.1 mmol/L (3.5-5.5); Sodium, Blood 140 mmol/L (136-145); Total Protein, Blood 6.6 g/dL (6.4-8.2); Triglycerides 170 mg/dL (30-160); Very Low Density Lipoprot Chol 34 mg/dL (6-32)
== END | disposition home or self-care (01) ==
LOC: LAB 07:55 → LAB SHORT 07:55
PROVIDERS: Family Medicine
DX: E11.9 Type 2 diabetes mellitus without complications (principal)
CPT/HCPCS: 80053; 80061; 83735